=== PATIENT | male | born 1995 | race American Indian/Alaskan Native ===

== ENCOUNTER 2018-07-28 13:23 | Emergency (ER) | payer MEDICARE ==
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
== END 2018-07-28 15:10 | disposition home or self-care (01) ==
LOC: ED 13:23
CPT/HCPCS: 99282

== ENCOUNTER 2020-06-19 18:43 | Emergency (ER) | payer MEDICARE ==
[2020-06-19 19:56] LABS: Hematocrit 47.1 % (35.5-45.6); Hemoglobin 15.8 gm/dl (11.8-15.2); Mean Corpuscular HGB Conc 34 % (32-34); Mean Corpuscular Volume 96 fl (84-94); Platelet Count 148 K/mm3 (140-440)
[2020-06-19 20:09] LABS: BUN/Creatinine Ratio 16; Blood Urea Nitrogen 13 mg/dL (9-20); Calcium 9.2 mg/dL (8.4-10.2); Hemolysis Index 45
[2020-06-19 20:15] LABS: Bilirubin,Urine NEG (Negative); Blood,Urine NEG (Negative); Color,Urine Yellow (Yellow); Protein,Urine <15 mg/dL mg/dL (Negative); Urobilinogen,Urine < 2.0 mg/dL (<2.0); WBC,Urine < 1.0 /HPF (0.0-6.0)
[2020-06-19 20:22] LABS: Amphetamine Screen,Urine Negative; Benzodiazepines Screen,Urine Negative; Cocaine Screen,Urine Negative; Methadone Screen,Urine Negative; Opiate Screen,Urine Negative
[2020-06-19 20:43] LABS: Cannabinoid Screen,Urine Positive
[2020-06-19 21:20] LABS: Basophils % (Manual) 0 % (0.0-1.8); Eosinophils % (Manual) 0 % (0.0-4.3); Total Cells Counted 100
[2020-06-19 21:27] LABS: Platelet Estimate Consistent w Auto; RBC Morphology Normal
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
[2020-06-20 00:11] VITALS: BP 118/61
== END 2020-06-20 00:11 | disposition home or self-care (01) ==
LOC: ED 18:43
DX: R51.9 Headache, unspecified (principal); R42 Dizziness and giddiness; Z04.6 Encounter for general psychiatric examination, requested by authority; I10 Essential (primary) hypertension; Z98.890 Other specified postprocedural states; Z79.899 Other long term (current) drug therapy
CPT/HCPCS: 36415; 80048; 80307; 80320; 81001; 85007; 85025; G0480

== ENCOUNTER 2020-06-20 21:17 | Emergency (ER) | payer MEDICARE | END 2020-06-20 23:40 | disposition left against medical advice (07) | LOC: ED 21:17 | DX: R42 Dizziness and giddiness (principal); R51.9 Headache, unspecified; R06.02 Shortness of breath; Z00.00 Encounter for general adult medical examination without abnormal findings; Z53.21 Procedure and treatment not carried out due to patient leaving prior to being seen by health care provider ==

== ENCOUNTER 2020-07-01 00:46 | Emergency (ER) | payer MEDICARE ==
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
[2020-07-01 03:56] LABS: Basophils % (Auto) 0.3 % (0.0-1.8); Eosinophils # (Auto) 0.2 K/mm3 (0.0-0.4); Eosinophils % (Auto) 1.7 % (0.0-4.3); Hematocrit 51.4 % (35.5-45.6); Hemoglobin 17.6 gm/dl (11.8-15.2); Lymphocytes # (Auto) 1.9 K/mm3 (1.2-5.4); Mean Corpuscular HGB Conc 34 % (32-34); Mean Corpuscular Volume 95 fl (84-94); Monocytes # (Auto) 0.7 K/mm3 (0.0-0.8); Monocytes % (Auto) 7.8 % (0.0-7.3); Red Blood Count 5.39 M/mm3 (3.65-5.03); Red Cell Distribution Width 13.1 % (13.2-15.2)
[2020-07-01 03:57] LABS: Bilirubin,Urine NEG (Negative); Blood,Urine NEG (Negative); Color,Urine Colorless (Yellow); Protein,Urine <15 mg/dL mg/dL (Negative); Urobilinogen,Urine < 2.0 mg/dL (<2.0)
[2020-07-01 04:13] LABS: BUN/Creatinine Ratio 10; Blood Urea Nitrogen 9 mg/dL (9-20); Calcium 10.6 mg/dL (8.4-10.2); Hemolysis Index 9
[2020-07-01 04:19] LABS: Platelet Count 175 K/mm3 (140-440)
[2020-07-01 05:04] LABS: Amphetamine Screen,Urine PRESUMPTIVE NEGATIVE; Benzodiazepines Screen,Urine PRESUMPTIVE NEGATIVE; Cannabinoid Screen,Urine PRESUMPTIVE NEGATIVE; Cocaine Screen,Urine PRESUMPTIVE NEGATIVE; Methadone Screen,Urine PRESUMPTIVE NEGATIVE; Opiate Screen,Urine PRESUMPTIVE NEGATIVE
[2020-07-01 08:26] VITALS: BP 123/76
--- NOTE | 2020-07-01 11:08 | Consultation ---
History of Present Illness - Reason for Consult Consult date: 07/01/20 Reason for consult: hallucinations - History of Present Psychiatric Illness Guerrero Acuña is a 25y/o male patient who presented to the ER with auditory hallucinations telling him to li white people. During my interview with the patient today, he is calm, cooperative. He is pleasant and polite. The patient denies any SI/HI and states, "I just need my medications." The patient states "last night I got in trouble at the [place]." He says "I went to get my meds but couldn't get them" The patient denies any hallucinations of any kind at present. He says "if you can get me my meds that's all I need. I'm good." The patient denies any illicit drug use, alcohol or nicotine. He says he has a h istory of "biploar, schizophrenia, and psychosis." The patient says he takes "invega, risperdal and depakote." He could not recall his doses. PAST PSYCHIATRIC HISTORY Diagnoses: biploar, schizophrenia, and psychosis Suicide attempts or Self-harm behavior: Denies Prior psychiatric hospitalizations: Yes Substance Abuse history: alcohol Previous psychiatric medications tried: risperdal, invega, depakote Outpatient treatment: Yes PAST MEDICAL HISTORY: None reported Family Psychiatric History: None reported or documented SOCIAL HISTORY Marital Status: Single Living Arrangements: with a friend Employment Status: Disabled Access to guns/weapons: None reported Education: high school History of Abuse: None reported Legal History: denies REVIEW OF SYSTEMS Constitutional: Negative for weight loss ENT: Negative for stridor Respiratory: Negative for cough or hemoptysis All other systems reviewed and are negative MENTAL STATUS EXAMINATION General Appearance and Behavior: Age appropriate, good hygiene, wearing appropriate clothes, good eye contact Cooperation: Participating/engaged Psychomotor Behavior: Psychomotor normal Mood: "good" Affect and affective range: congruent with stated mood Thought Process: logical Thought Content: None Speech: Normal rate, volume and rhythm Suicidal Ideation: Denies Homicidal Ideation: Denies Hallucinations: Denies Delusions: None elicited Impulse Control: Limited Insight and Judgment:Limited insight and judgment Memory: Normal Attention: Normal Orientation: Alert, oriented Assessment and Plan (1) Schizophrenia (2) Non compliant with other medical treatment and regimen Treatment Plan d/c 1013 Scripts: Invega Sustenna 156mg IM monthly Risperidone 0.5mg po BID Margaritate DR 125mg po BID Please give risperidone and depakote prior to discharge. Continue previously prescribed medications Risks, benefits and alternatives of medications discussed with the patient, questions answered and consent obtained from patient. PSYCHOTHERAPY: Supportive psychotherapy provided MEDICAL: Per primary team DELIRIUM PRECAUTIONS: Please re-orient patient frequently, keep lights on during the day, and minimize benzodiazepines and opiates as these medications could worsen patient's confusion. STUNNER AND SHACKLER: Defer to primary DISPOSITION: Do not recommend acute inpatient psychiatric hospitalization at this time. The patient understands that if suicidal thoughts are to reoccur he is to seek immediate assistance including but not limited to 911/ER or the crisis hotline. The processing archivist is to give the patient resources for the [facility] and cognitive behavior therapy The processing archivist is to discuss safety plan The patient is to follow up in 7 to 14 days Will sign off. Thank you for the consult. Please contact with any questions and/or concerns. Case staffed with Dr. Bentley. Medications and Allergies Allergies Allergy/AdvReac Type Severity Reaction Status Date / Time No Known Allergies Allergy Unverified 07/28/18 13:36 Home Medications Medication Instructions Recorded Confirmed Last Taken Type Divalproex Dr [Sammy GIBSON] 125 mg PO BID #60 tablet 07/01/20 Unknown Rx Divalproex [Sammy GIBSON] 500 mg PO BID 07/01/20 07/01/20 Unknown History Invega Sustenna 07/01/20 Unknown History Paliperidone Palmitate [Invega 156 mg IM ONCE #1 ml 07/01/20 Unknown Rx Sustenna] RisperDAL 07/01/20 Unknown History propranoloL [Inderal] 10 mg PO BID 07/01/20 07/01/20 Unknown History risperiDONE [RisperDAL] 0.5 mg PO BID #60 tablet 07/01/20 Unknown Rx Mental Status Exam - Vital signs Last Vital Signs Temp 97.8 F 07/01/20 08:25 Pulse 64 07/01/20 08:25 Resp 20 07/01/20 08:25 BP 123/76 07/01/20 08:25 Pulse Ox 98 07/01/20 08:25 Results Result Diagrams: 07/01/20 03:19 07/01/20 03:19 Abnormal lab results 07/01/20 07/01/2020 Range/Units 03:19 03:19 03:19 RBC (3.65-5.03) M/mm3 Hgb (11.8-15.2) gm/dl Hct (35.5-45.6) % MCV (84-94) fl MCH (28-32) pg RDW (13.2-15.2) % [place] % (Auto) (0.0-7.3) % Glucose 101 H (75-100) mg/dL Calcium 10.6 H (8.4-10.2) mg/dL Ur Specific [place] (1.003-1.030) Salicylates < 0.3 L (2.8-20.0) mg/dL Acetaminophen 5.0 L (10.0-30.0) ug/mL 07/01/20 07/01/20 Range/Units 03:19 03:22 RBC 5.39 H (3.65-5.03) M/mm3 Hgb 17.6 H (11.8-15.2) gm/dl Hct 51.4 H (35.5-45.6) % MCV 95 H (84-94) fl MCH 33 H (28-32) pg RDW 13.1 L (13.2-15.2) % [place] % (Auto) 7.8 H (0.0-7.3) % Glucose (75-100) mg/dL Calcium (8.4-10.2) mg/dL Ur Specific [place] 1.002 L (1.003-1.030) Salicylates (2.8-20.0) mg/dL Acetaminophen (10.0-30.0) ug/mL All other labs normal.
[2020-07-01] MEDS ORDERED: risperiDONE 0.25 MG TAB PO ONE (12:00)
[2020-07-01] MEDS ORDERED: DIVALPROEX DR 125 MG TAB PO ONE (12:00)
--- NOTE | 2020-07-01 13:21 | Emergency Department Report ---
Blank Doc - Documentation Documentation: Patient seen and evaluated by psych. Per psych the patient is clear for disch arge.
== END 2020-07-01 13:39 | disposition home or self-care (01) ==
LOC: ED 00:46
DX: F22 Delusional disorders (principal); I10 Essential (primary) hypertension; F17.200 Nicotine dependence, unspecified, uncomplicated; Z98.890 Other specified postprocedural states; Z79.899 Other long term (current) drug therapy
CPT/HCPCS: 36415; 80048; 80307; 80320; 81001; 85025; G0480